=== PATIENT | male | born 1965 ===

== ENCOUNTER 2023-10-25 23:59 | Outpatient (BNV) | payer OTHER, SELFPAY | END 2023-10-28 23:59 | PROVIDERS: Visit Provider Internal Medicine | DX: I51.4 Myocarditis, unspecified (principal); R77.8 Other specified abnormalities of plasma proteins; R07.89 Other chest pain; I42.9 Cardiomyopathy, unspecified | CPT/HCPCS: 99233 ==

== ENCOUNTER → 2023-10-25 23:59 | Outpatient (BNV) | payer OTHER, SELFPAY | PROVIDERS: Visit Provider Internal Medicine | DX: I25.10 Atherosclerotic heart disease of native coronary artery without angina pectoris (principal); I30.8 Other forms of acute pericarditis; I25.5 Ischemic cardiomyopathy | CPT/HCPCS: 99223 ==